=== PATIENT | female | born 1965 | race American Indian/Alaskan Native ===

== ENCOUNTER 2022-03-30 14:50 | Emergency (ER) | payer SELFPAY ==
[2022-03-30] MEDS ORDERED: hydrALAZINE 20 MG/1 ML INJ IV ONE (19:55)
--- NOTE | 2022-03-30 19:58 | Emergency Department Report ---
ED General Adult HPI - General Chief complaint: Back Pain/Injury Stated complaint: HEADACHE HBP Source: patient Mode of arrival: Ambulatory Limitations: No Limitations - History of Present Illness Initial comments: Patient is 56 years old female with history of hypertension, noncompliant with her medication. Patient presented to the ER complaining of headache and high blood pressure. Patient also reported that she is having some chest pain on and off. She stated that her symptoms been going on for few days now. Patient denies any focal weakness, numbness or tingling sensation. She denied any ataxia or blurry vision. Stroke scale is 0. -: days(s) (3) Location: head Associated Symptoms: denies other symptoms, chest pain, headaches - Related Data Previous Rx's Medication Instructions Recorded Last Taken Type amLODIPine [Norvasc] 5 mg PO DAILY #30 tab 03/30/22 Unknown Rx hydroCHLOROthiazide [HCTZ] 25 mg PO QDAY #30 tablet 03/30/22 Unknown Rx Allergies Allergy/AdvReac Type Severity Reaction Status Date / Time No Known Allergies Allergy Verified 03/30/22 15:21 ED Review of Systems ROS: Stated complaint: HEADACHE HBP Other details as noted in HPI Comment: All other systems reviewed and negative Constitutional: denies: chills, fever Respiratory: denies: cough, shortness of breath, SOB with exertion Cardiovascular: chest pain. denies: palpitations, dyspnea on exertion, orthopnea Gastrointestinal: denies: abdominal pain, nausea, vomiting, diarrhea, constipation, hematemesis, hematochezia Musculoskeletal: denies: back pain Neurological: headache. denies: weakness, numbness, paresthesias, confusion ED Past Medical Hx - Medications Home Medications: Home Medications Medication Instructions Recorded Confirmed Last Taken Type amLODIPine [Norvasc] 5 mg PO DAILY #30 tab 03/30/22 Unknown Rx hydroCHLOROthiazide [HCTZ] 25 mg PO QDAY #30 tablet 03/30/22 Unknown Rx ED Physical Exam - General Limitations: No Limitations General appearance: alert, in no apparent distress - Head Head exam: Present: atraumatic, normocephalic, normal inspection - Eye Eye exam: Present: normal appearance - ENT ENT exam: Present: normal exam, normal orophraynx, mucous membranes moist - Neck Neck exam: Present: normal inspection, full ROM. Absent: tenderness, meni ngismus - Respiratory Respiratory exam: Present: normal lung sounds bilaterally - Cardiovascular Cardiovascular Exam: Present: regular rate, normal rhythm, normal heart sounds - GI/Abdominal GI/Abdominal exam: Present: soft, normal bowel sounds. Absent: distended, tenderness, guarding, rebound, rigid, organomegaly, mass, bruit, pulsatile mass, hernia - Extremities Exam Extremities exam: Present: normal inspection, full ROM, normal capillary refill. Absent: tenderness, pedal edema, joint swelling, calf tenderness - Back Exam Back exam: Present: normal inspection, full ROM. Absent: CVA tenderness (R), CVA tenderness (L) - Neurological Exam Neurological exam: Present: alert, oriented X3, CN II-XII intact, normal gait, reflexes normal. Absent: motor sensory deficit - Psychiatric Psychiatric exam: Present: normal mood - Skin Skin exam: Present: warm, intact, normal color ED Course Vital Signs 03/30/22 03/30/22 03/30/22 15:19 19:42 20:10 Temperature 98 F Pulse Rate 90 Respiratory 18 18 Rate Blood Pressure 240/150 228/137 Blood Pressure 217/137 [Right] O2 Sat by Pulse 99 Oximetry 03/30/22 03/30/22 03/30/22 21:05 23:53 23:54 Temperature 98.8 F 98.0 F 98.0 F Pulse Rate 87 79 79 Respiratory 15 21 21 Rate Blood Pressure 100/58 Blood Pressure 208/122 100/58 [Right] O2 Sat by Pulse 99 97 97 Oximetry ED Medical Decision Making - Lab Data Result diagrams: 03/30/22 20:02 03/30/22 20:02 - EKG Data -: EKG Interpreted by [place] EKG shows normal: sinus rhythm Rate: normal - EKG Data Interpretation: nonspecific ST-T wave tavo - Radiology Data Radiology results: report reviewed - Medical Decision Making Patient is 56 years old female with history of hypertension, noncompliant with her medication. Patient presented to the ER complaining of headache and high blood pressure. Patient also reported that she is having some chest pain on and off. She stated that her symptoms been going on for few days now. Patient denies any focal weakness, numbness or tingling sensation. She denied any ataxi a or blurry vision. Stroke scale is 0. Patient received hydralazine 20 mg IV and that improved her blood pressure significantly. EKG is unremarkable. Labs reviewed and is unremarkable 2. Patient chest x-ray is negative for acute finding. Patient strongly advised to be compliant with her medication and advised to follow-up with her primary care physician in the next 2 to 3 days and to return to the ER if she develop any new symptoms. Critical care attestation.: If time is entered above; I have spent that time in minutes in the direct care of this critically ill patient, excluding procedure time. ED Disposition Clinical Impression: Malignant hypertension Disposition: HOME / SELF CARE / HOMELESS Is pt being admited?: No Condition: Stable Instructions: Hypertension, Adult, Hypertension (ED) Prescriptions: amLODIPine [Norvasc] 5 mg PO DAILY #30 tab hydroCHLOROthiazide [HCTZ] 25 mg PO QDAY #30 tablet Referrals: [facility] MD VERÓNICA [Primary Care Provider] - 3-5 Days
--- NOTE | 2022-03-30 20:29 | XRay Report ---
CHEST 2 VIEWS INDICATION / CLINICAL INFORMATION: Chest Pain. COMPARISON: None available. FINDINGS: SUPPORT DEVICES: None. HEART / MEDIASTINUM: Normal heart size. Atherosclerosis in the thoracic aorta. LUNGS / PLEURA: No significant pulmonary or pleural abnormality. No pneumothorax. ADDITIONAL FINDINGS: No significant additional findings. IMPRESSION: 1. No acute findings. Signer Name: Demetri Esteban MD Signed: 03/30/2022 8:25 PM Workstation Name: [id number]
[2022-03-30 20:32] LABS: Basophils # (Auto) 0.1 K/mm3 (0.0-0.1); Eosinophils # (Auto) 0.1 K/mm3 (0.0-0.4); Eosinophils % (Auto) 2.1 % (0.0-4.3); Hematocrit 44.7 % (30.3-42.9); Hemoglobin 14.7 gm/dl (10.1-14.3); Lymphocytes % (Auto) 34.8 % (13.4-35.0); Mean Corpuscular HGB Conc 33 % (30-34); Mean Corpuscular Volume 85 fl (79-97); Monocytes # (Auto) 0.6 K/mm3 (0.0-0.8); Monocytes % (Auto) 10.6 % (0.0-7.3); Platelet Count 309 K/mm3 (140-440); Red Blood Count 5.25 M/mm3 (3.65-5.03); Red Cell Distribution Width 13.3 % (13.2-15.2)
--- NOTE | 2022-03-30 20:37 | Cat Scan Report ---
CT head/brain wo con INDICATION: Headache. TECHNIQUE: Routine CT head. All CT scans at this location are performed using CT dose reduction for A RONDA by means of automated exposure control. COMPARISON: None. FINDINGS: Intracranial: Puentes-white matter differentiation is maintained. No intracranial hemorrhage. No extra a xial collection. No hydrocephalus. No herniation. Sinuses: Paranasal sinuses and mastoid air cells are essentially clear. Orbits: Globes are intact. Calvarium: No acute fracture. IMPRESSION: 1. No acute intracranial abnormality. Signer Name: Momo Chen MD Signed: 03/30/2022 8:32 PM Workstation Name: [id number]
[2022-03-30 20:43] LABS: INR 0.79 (0.87-1.13)
[2022-03-30 20:44] LABS: Partial Thromboplastin Time 31.4 Sec. (24.2-36.6)
[2022-03-30 20:50] LABS: BUN/Creatinine Ratio 21; Blood Urea Nitrogen 17 mg/dL (7-17); Calcium 10.1 mg/dL (8.4-10.2); Hemolysis Index 16
[2022-03-30 20:53] LABS: Alanine Aminotransferase 44 units/L (7-56); Albumin 4.4 g/dL (3.9-5)
[2022-03-30 20:55] LABS: Bilirubin,Direct < 0.2 mg/dL (0-0.2)
[2022-03-30] MEDS ORDERED: SODIUM CHLORIDE IRRI 500 ML 0 ML IR ONE (22:43)
[2022-03-30] MEDS ORDERED: SODIUM CHLORIDE 0.9% 500 ML 500 ML ONE (22:45)
[2022-03-30] MEDS ORDERED: SODIUM CHLORIDE 0.9% 500 ML 500 ML IV ONE (22:55)
[2022-03-30 23:54] VITALS: BP 100/58
== END 2022-03-31 00:26 | disposition home or self-care (01) ==
LOC: ED 14:50
DX: I10 Essential (primary) hypertension (principal)
CPT/HCPCS: 36415; 70450; 71046; 80048; 80076; 84484; 85025; 85610; 85730; 93005; 96374; 99284; J0360; J7040